=== PATIENT | male | born 1935 | race Caucasian/White ===

== ENCOUNTER → 2023-08-14 10:32 | Outpatient (REF) | payer OTHER, SELFPAY ==
[2023-08-14 13:10] LABS: Lithium 0.7 mmol/L (0.6-1.2)
== END ==
LOC: REG 10:32
PROVIDERS: ATTENDING PHYSICIAN Psychiatry & Neurology Psychiatry; FAMILY PHYSICIAN Internal Medicine
DX: F32.9 Major depressive disorder, single episode, unspecified (principal)
CPT/HCPCS: 36415; 80178